=== PATIENT | male | born 1975 | race Caucasian/White ===

== ENCOUNTER 2016-05-20 12:27 | Emergency (ER) | payer BC ==
--- NOTE | ~2016-05-20 | CT4 ---
[facility] A Service of [facility] RADIOLOGY TEXT RESULTS PATIENT: CECILIO LEYVA LOCATION: SED : 71 UNIT #: [id number] AGE: [address]: Shane Marti MD SEX: M ORDER DR: [id number] [place] [id number] E MR#: [id number] Acc #: [id number] NAME: CECILIO LEYVA : 1975 SEX: M STUDY DATE/TIME: 05/20/2016 11:12 UNIT: SED ROOM: STUDY DESCRIPTION: CT Abd and Pelv Wo Cont Attending Physician: Shane Marti M.D. Ordering Physician: Shane Marti M.D. MEDICAL IMAGING REPORT This report is preliminary unless electronic signature is present. EXAM Abdomen and pelvis CT without contrast, 05/20/2016 HISTORY Right-sided renal colic extending down into the pelvis, accompanied by nausea beginning this morning. TECHNIQUE Axial images were obtained through the abdomen and pelvis without contrast and compared with 07/03/2015. This CT exam was performed with one or more of the following radiation dose reduction techniques: automatic exposure control, adjustment of mA and/or kV according to patient size, and iterative reconstruction. FINDINGS The liver, spleen and pancreas are normal in size. No kidney stones are seen in either kidney. There is a small left renal cyst. The adrenal glands are unremarkable. The ureters are nondilated and no ureteral stones are seen. There is no evidence of retroperitoneal adenopathy or ascites. The appendix is absent. The terminal ileum is unremarkable in appearance. In the pelvis there is no evidence of adenopathy, mass or fluid collection. IMPRESSION No evidence of stone disease or obstruction. No acute or inflammatory changes are seen in the abdomen or pelvis. Dictated by... Yg Blevins M.D. [facility] A Service of [facility] RADIOLOGY TEXT RESULTS PATIENT: CECILIO LEYVA LOCATION: SED : 71 UNIT #: [id number] AGE: [address]: Shane Marti MD SEX: M ORDER DR: THIS IS AN ELECTRONICALLY VERIFIED REPORT Yg Blevins M.D. at 05/22/2016 9:45 AM SCARLETT/veronica TD: 05/20/2016 22:37 JOB #: [id number] MEDICAL IMAGING REPORT Page 1 of 1
[2016-05-20 11:13] LABS: URINE SOURCE CLEAN CATCH
[2016-05-20 11:15] LABS: URINE APPEARANCE CLEAR; URINE BILIRUBIN NEG (NEG); URINE BLOOD NEG (NEG); URINE COLOR YELLOW; URINE GLUCOSE NEG (NORM); URINE KETONE NEG (NEG); URINE LEUKOCYTE ESTERASE NEG (NEG); URINE NITRATE NEG (NEG); URINE PH 7.5 (5-8); URINE PROTEIN NEG (NEG); URINE UROBILINOGEN 0.2 MG/DL (NORM)
[2016-05-20 11:16] LABS: MICRO INDICATED? NO
== END 2016-05-20 12:30 | disposition home or self-care (01) ==
LOC: SED 12:27
PROVIDERS: Emergency Medicine
DX: N20.1 Calculus of ureter (principal)
CPT/HCPCS: 36415; 74176; 81003; 96361; 96374; 96375; 99284; J1885; J2405